=== PATIENT | female | born 1980 | race Caucasian/White ===

== ENCOUNTER 2018-10-30 00:23 | Emergency (ER) | payer OTHER ==
[~2018-10-30] VITALS: Ht 162.6 cm; Wt 76.8 kg
[2018-10-30 00:32] VITALS: BP 120/73
[2018-10-30] MEDS: IBUPROFEN 600 MG TABLET PO ONE (01:32)
== END 2018-10-30 01:37 | disposition home or self-care (01) ==
LOC: EMS 00:24
DX: S60.442A External constriction of right middle finger, initial encounter (principal); S40.011A Contusion of right shoulder, initial encounter; W49.04XA Ring or other jewelry causing external constriction, initial encounter; Y93.89 Activity, other specified; Y92.89 Other specified places as the place of occurrence of the external cause; Y99.8 Other external cause status